=== PATIENT | male | born 1955 | race Caucasian/White ===

== ENCOUNTER 2016-05-14 10:41 | Inpatient (IN) | payer MEDICARE, OTHER ==
[~2016-05-14] VITALS: Ht 180.3 cm; Wt 110.2 kg
[2016-05-14] MEDS ORDERED: OPTIRAY 350 100 ML VIAL HMH IV ONE (10:42)
[2016-05-14] MEDS ORDERED: SALINE FLUSH 10 ML FLUSH PRN (19:35)
[2016-05-14] MEDS ORDERED: SODIUM CHLORIDE 0.9% FLUSH BAG 500 ML IV PRN (19:35)
[2016-05-14] MEDS ORDERED: NITROGLYCERIN SL 0.4 MG TAB SL PRN (19:35)
[2016-05-14] MEDS ORDERED: TEMAZEPAM 15 MG CAP PO PRN (19:35)
[2016-05-14] MEDS ORDERED: TRAMADOL 50 MG TAB PO PRN (19:35)
[2016-05-14] MEDS ORDERED: LORAZEPAM 0.5 MG TAB PO PRN (19:35)
[2016-05-14] MEDS ORDERED: NITROGLYCERIN 50 MG/250 ML IV PRN (19:35)
[2016-05-14] MEDS ORDERED: DOCUSATE SOD 100 MG CAP PO PRN (19:35)
[2016-05-14] MEDS ORDERED: ASPIRIN 81 MG CHEW TAB PO ONE (19:35)
[2016-05-14] MEDS ORDERED: ONDANSETRON 4 MG VIAL IV PRN (19:35)
[2016-05-14] MEDS ORDERED: ACETAMINOPHEN 325 MG TAB PO PRN (19:35)
[2016-05-14] MEDS ORDERED: MORPHINE 2 MG/ML SYR IV PRN (19:35)
[2016-05-14] MEDS: SALINE FLUSH 10 ML FLUSH SCH (19:44)
[2016-05-14 20:00] VITALS: BP_SYST 122; BP_SYST 128; RESP 18; TEMP 97.8; Ht 180.3 cm; Wt 110.2 kg
[2016-05-14 20:34] VITALS: RESP 18
[2016-05-14] MEDS ORDERED: NEB-ALBUTEROL 2.5 MG/3 ML INH PRN (20:55)
[2016-05-14] MEDS ORDERED: GABAPENTIN 600 MG TAB PO SCH (21:00)
[2016-05-14] MEDS ORDERED: METHOCARBAMOL 500 MG TAB PO SCH (21:00)
[2016-05-14] MEDS ORDERED: METOPROLOL TART 25 MG TAB PO SCH (21:00)
[2016-05-14] MEDS: PANTOPRAZOLE 40 MG TAB PO SCH (21:47)
[2016-05-15] VITALS (10 sets, daily range): BP systolic 116–139; RESP 18–20; TEMP 97.3–98.5
[2016-05-15] MEDS: NEB-BUDESONIDE 0.5 MG INH SCH ×2 (07:32→19:44)
[2016-05-15] MEDS: NEB-BROVANA 15 MCG/2 ML INH SCH ×2 (07:32→19:44)
[2016-05-15] MEDS: ASPIRIN EC 81 MG TAB PO SCH (08:00)
[2016-05-15] MEDS: SALINE FLUSH 10 ML FLUSH SCH ×2 (08:00→22:10)
[2016-05-15] MEDS ORDERED: LEXISCAN 0.4 MG/5 ML SYRINGE IV ONE (08:30)
[2016-05-15] MEDS ORDERED: PANTOPRAZOLE 40 MG TAB PO ONE (09:45)
[2016-05-15] MEDS: GABAPENTIN 600 MG TAB PO SCH ×2 (10:13→22:10)
[2016-05-15] MEDS: METOPROLOL TART 25 MG TAB PO SCH ×2 (10:13→22:10)
[2016-05-15] MEDS: ALLOPURINOL 300 MG TAB PO SCH (10:14)
[2016-05-15] MEDS: METHOCARBAMOL 500 MG TAB PO SCH ×2 (10:15→22:10)
[2016-05-15] MEDS: CETIRIZINE 10 MG TAB PO SCH (10:15)
[2016-05-15] MEDS: amLODIPine 5 MG TAB PO SCH (10:15)
[2016-05-15] MEDS: PANTOPRAZOLE 40 MG TAB PO SCH (22:10)
[2016-05-16] VITALS (13 sets, daily range): BP systolic 120–142; RESP 16–18; TEMP 97.3–97.9
[2016-05-16] MEDS: NEB-BUDESONIDE 0.5 MG INH SCH ×2 (06:58→19:00)
[2016-05-16] MEDS: NEB-BROVANA 15 MCG/2 ML INH SCH ×2 (06:58→19:00)
[2016-05-16] MEDS: CETIRIZINE 10 MG TAB PO SCH (08:10)
[2016-05-16] MEDS: SALINE FLUSH 10 ML FLUSH SCH (08:10)
[2016-05-16] MEDS: ALLOPURINOL 300 MG TAB PO SCH (08:10)
[2016-05-16] MEDS: GABAPENTIN 600 MG TAB PO SCH (08:10)
[2016-05-16] MEDS: METHOCARBAMOL 500 MG TAB PO SCH (08:10)
[2016-05-16] MEDS: amLODIPine 5 MG TAB PO SCH (08:10)
[2016-05-16] MEDS: METOPROLOL TART 25 MG TAB PO SCH (08:11)
[2016-05-16] MEDS: ASPIRIN EC 81 MG TAB PO SCH (08:11)
[2016-05-16] MEDS ORDERED: ISOSORBIDE MONO 30 MG TAB PO SCH (17:35)
[2016-05-16] MEDS ORDERED: LIDOCAINE 2% 20 ML ONE (18:10)
[2016-05-16] MEDS ORDERED: FENTANYL 100 MCG/2 ML AMP ONE (18:10)
[2016-05-16] MEDS ORDERED: MEPERIDINE 50 MG/ML ONE (18:10)
[2016-05-16] MEDS ORDERED: MIDAZOLAM 2 MG/2 ML INJ ONE (18:10)
== END 2016-05-16 19:10 | disposition home or self-care (01) | DRG 313 ==
LOC: ENRESERVDT → CANRESERV → ENRESERVTM → ER 10:41 → EMR 14:28 → PCU2 19:21 → OBSVTOIN 05-16 09:43 → ENPENDDIS 05-16 09:43
PROVIDERS: ADMIT Specialist; ATTEND Specialist
DX: R07.9 Chest pain, unspecified (principal); I25.10 Atherosclerotic heart disease of native coronary artery without angina pectoris; I10 Essential (primary) hypertension; F32.9 Major depressive disorder, single episode, unspecified; K21.9 Gastro-esophageal reflux disease without esophagitis; F41.9 Anxiety disorder, unspecified; Z95.1 Presence of aortocoronary bypass graft; Z87.891 Personal history of nicotine dependence; J44.9 Chronic obstructive pulmonary disease, unspecified; Z79.82 Long term (current) use of aspirin; M10.9 Gout, unspecified
CPT/HCPCS: 36415; 71010; 71275; 74175; 78452; 80053; 80061; 82550; 82553; 83735; 84484; 85025; 85610; 85730; 93005; 93017; 93455; 93660; 94640; 94799